=== PATIENT | female | born 1945 | race Caucasian/White ===

== ENCOUNTER 2024-07-14 21:03 | Emergency (ER) | payer MEDICARE ==
[2024-07-14] VITALS (9 sets, daily range): BP systolic 92–155; BP diastolic 60–73
[~2024-07-14] VITALS: Ht 157.5 cm; Wt 48.0 kg
[2024-07-14] MEDS ORDERED: SINEMET 25/1001 TA2 PO (22:04)
[2024-07-14] MEDS ORDERED: KEPPRA250 M1 PO (22:06)
[2024-07-14 22:09] LABS: BASO% 0.5 % (0-3); EOS% 0.5 % (0-8); HEMATOCRIT 38.1 % (37.0-47.0); HEMOGLOBIN 12.1 g/dl (12.0-16.0); IMMATURE GRANULOCYTES 0.2 % (0.0-5.0); LYMPH% 27.2 % (15-41); MEAN CELL VOLUME 101.6 fL CALC (80.0-100.0); MEAN CORPUSCULAR HGB 32.3 pG CALC (26.0-32.0); MEAN CORPUSCULAR HGB CONC 31.8 g/dL CAL (32.0-36.0); MONO% 12.1 % (2-13); NEUT# 3.31 thou/uL (2.00-7.15); NEUT% 59.5 % (42-76); RED BLOOD COUNT 3.75 mill/uL (4.20-5.60); RED CELL DISTRI WIDTH 13.1 % (11.5-15.5)
[2024-07-14 22:19] LABS: ALBUMIN 4.1 g/dL (3.2-5.0); BILIRUBIN, TOTAL 0.7 mg/dL (0.02-1.3); CREATININE 0.6 mg/dL (0.5-1.0); POTASSIUM 4.2 mmol/l (3.5-5.1)
[2024-07-14] MEDS ORDERED: FUROSEMIDE 40 MG/4 ML SDV IV ONE (22:40)
[2024-07-15] VITALS (7 sets, daily range): BP systolic 128–162; BP diastolic 56–77
[2024-07-15 00:40] LABS: URINE BILIRUBIN - DIPSTICK Negative (NEGATIVE); URINE BLOOD DIPSTICK Negative (NEGATIVE); URINE COLOR Yellow; URINE GLUCOSE - DIPSTICK Negative (NEGATIVE); URINE KETONE Negative (NEGATIVE); URINE LEUK ESTERASE Negative (NEGATIVE); URINE NITRITE - DIPSTICK Negative (Negative); URINE PH 6.5 (4.5-8.0); URINE PROTEIN - DIPSTICK Negative (NEG-TRACE); URINE SPECIFIC GRAVITY 1.015; URINE UROBILINOGEN - DIPSTICK 0.2 E.U./dL (0.2)
[2024-07-15] MEDS ORDERED: LASIX20 MG PO (00:46)
== END 2024-07-15 01:45 | disposition home or self-care (01) ==
LOC: ED 21:03
PROVIDERS: Family Medicine
DX: I50.9 Heart failure, unspecified (principal); G20.A1 Parkinson's disease without dyskinesia, without mention of fluctuations; I35.8 Other nonrheumatic aortic valve disorders; S09.90XA Unspecified injury of head, initial encounter; W19.XXXA Unspecified fall, initial encounter